=== PATIENT | male | born 1990 | race American Indian/Alaskan Native ===

== ENCOUNTER 2018-02-27 13:14 | Emergency (ER) | payer BC ==
--- NOTE | 2018-02-27 15:34 | Emergency Department Report ---
ED Allergic Reaction HPI - General Chief complaint: Allergic Reaction Stated complaint: ALLERGIC REACTION Time Seen by Provider: 02/27/18 14:07 Source: patient, EMS Mode of arrival: Stretcher Limitations: No Limitations - History of Present Illness Initial Comments: Mr wadsworth is a 27 year-old man without PMH who presents after being stung by wasp. Stung at 1205pm while working on an HVAC unit. Stung in left arm. Was driving to urgent care when he started to have trouble breathing, became light headed. Also had some itching in his throat. Called EMS. They heard some wheezing and gave epinephrine, benadryl. Patient now reports feeling entirely normal. No shortness of breath. no chest pain. no abdominal pain/nausea/ MD Complaint: allergic reaction -: Sudden Time: 12:05 Exposure: insect bite Symptoms: itching, difficulty swallowing, difficulty breathing, dizziness. denies: facial swelling, lip swelling, orolingual swelling, hoarseness, syncopy , nausea, vomiting, abdominal pain Severity: moderate Treatment Prior to Arrival: benadryl, epinephrine Previous Allergy History: none - Related Data Allergies Allergy/AdvReac Type Severity Reaction Status Date / Time No Known Allergies Allergy Verified 02/27/18 14:44 ED Review of Systems ROS: Stated complaint: ALLERGIC REACTION Other details as noted in HPI Comment: All other systems reviewed and negative ED Past Medical Hx - Past Medical History Previous Medical History?: Yes Additional medical history: Hx heart murmur. - Surgical History Past Surgical History?: No - Social History Smoking Status: Never Smoker Substance Use Type: None ED Physical Exam - General Limitations: No Limitations General appearance: alert, in no apparent distress - Head Head exam: Present: atraumatic, normocephalic - Eye Eye exam: Present: normal appearance, PERRL, EOMI. Absent: scleral icterus, periorbital swelling - ENT ENT exam: Present: normal exam, normal orophraynx, mucous membranes moist - Neck Neck exam: Present: normal inspection, full ROM. Absent: tenderness - Respiratory Respiratory exam: Present: normal lung sounds bilaterally. Absent: respiratory distress, wheezes, rales, rhonchi, chest wall tenderness, accessory muscle use - Cardiovascular Cardiovascular Exam: Present: regular rate, normal rhythm, systolic murmur. Absent: diastolic murmur, rubs, gallop - GI/Abdominal GI/Abdominal exam: Present: soft. Absent: distended, tenderness, guarding, rebound - Rectal Rectal exam: Present: deferred - Extremities Exam Extremities exam: Present: normal inspection, other (left latearl upepr arm with local swelling from insect sting, no surrounding erythema) - Back Exam Back exam: Present: normal inspection - Neurological Exam Neurological exam: Present: alert, oriented X3 - Psychiatric Psychiatric exam: Present: normal affect, normal mood - Skin Skin exam: Present: warm, dry, intact, normal color. Absent: rash ED Course Vital Signs 02/27/18 02/27/18 02/27/18 14:15 14:21 14:22 Temperature 98.6 F Pulse Rate 78 Respiratory 14 14 14 Rate Blood Pressure 107/63 Blood Pressure 107/63 [Right] O2 Sat by Pulse 100 100 Oximetry 02/27/18 14:30 Temperature Pulse Rate 73 Respiratory 11 L Rate Blood Pressure 113/61 Blood Pressure [Right] O2 Sat by Pulse 99 Oximetry ED Medical Decision Making - Medical Decision Making Mr wadsworth is a 27 year-old man without PMH who presents after being stung by wasp. Hard time breathing, itchy throat, called EMS. Was wheezing when they arrived. Received benadryl and IM epinephrine. No symptoms on arrival to ED. Time of sting was 1205pm. Given 125 IM solumedrol. Observed for 4 hours. No further symptoms. VSS. DC to home with care instructions, epi pen rx, instructions for epi pen use and instructions to return to ED for further stings or symptoms of allergic rxn. Critical care attestation.: If time is entered above; I have spent that time in minutes in the direct care of this critically ill patient, excluding procedure time. ED Disposition Clinical Impression: Allergic reaction to bee sting Disposition: DC-01 TO HOME OR SELFCARE Is pt being admited?: No Does the pt Need Aspirin: No Condition: Stable Instructions: Anaphylaxis (ED), Epinephrine (Injection) Referrals: PRIMARY CARE,MD [Primary Care Provider] - 3-5 Days
[2018-02-27 16:49] VITALS: BP 118/72
== END 2018-02-27 16:47 | disposition home or self-care (01) ==
LOC: ED 13:14
DX: T63.441A Toxic effect of venom of bees, accidental (unintentional), initial encounter (principal); Y92.89 Other specified places as the place of occurrence of the external cause
CPT/HCPCS: 96372; 99283; J2930